=== PATIENT | female | born 1975 | race American Indian/Alaskan Native ===

== ENCOUNTER 2017-08-04 08:28 | Inpatient (IN) | payer MEDICARE, MEDICAID ==
[2017-08-04 08:34] VITALS: BMI 35.3
--- NOTE | 2017-08-04 09:01 | ED PDOC ---
Arrival/HPI - General Time Seen by Provider: 08/04/17 08:46 Historian: Patient, Other ([facility]) - History of Present Illness Narrative History of Present Illness (Text): 08/04/17 08:55 Pt p/w ~ 1 day onset of worsening depression, feeling suicidal, no plans; pt denied homicidal ideation; pt denied hallucinations - visual/tactile/auditory; no medical complaints currently; pt states no fever/chills/sweats, no cp/sob/ palpitations, no abd pain, no n/v, no numbness/tingling, no urinary/bowel changes; no fall/trauma/sick contact, no travel; pt's without other complaints; pt is here for further eval pt has been medically cleared by the previous emergency department prior to ED arrival. Time/Duration: < week Symptom Onset: Gradual Symptom Course: Worsening Severity Level: 8 Activities at Onset: Rest Past Medical History - Provider Review Nursing Documentation Reviewed: Yes - Travel History Have you recently traveled outside US w/in the past 3 mons?: No - Past History Past History: No Previous - Gastrointestinal Hx Gastroesophageal Reflux: Yes - Psychiatric Hx Anxiety: Yes Hx Depression: Yes Family/Social History - Physician Review Nursing Documentation Reviewed: Yes Family/Social History: No Known Family HX Smoking Status: Never Smoked Hx Alcohol Use: No Hx Substance Use: No Hx Substance Use Treatment: No Allergies/Home Meds Allergies/Adverse Reactions: Allergies benztropine [From Cogentin] Allergy (Verified 08/04/17 13:58) ANGIOEDEMA shrimp Allergy (Verified 08/04/17 13:58) RASH Tetracyclines Allergy (Verified 08/04/17 13:58) ANGIOEDEMA Home Medications: Home Meds Medication Instructions Recorded Confirmed Aspirin [Ecotrin] 81 mg PO DAILY 08/04/17 08/04/17 Omeprazole 20 mg PO DAILY 08/04/17 08/04/17 Paliperidone Palmitate [Invega 156 mg IM Q30D 08/04/17 08/04/17 Sustenna] Risperidone [Risperdal] 2 mg PO BID 08/04/17 08/04/17 Review of Systems - Review of Systems Constitutional: Normal Eyes: Normal ENT: Normal Respiratory: Normal Cardiovascular: Normal Gastrointestinal: Normal Genitourinary Female: Normal Musculoskeletal: Normal Skin: Normal Neurological: Normal Endocrine: Normal Hemo/Lymphatic: Normal Psychiatric: Depression, Suicidal Ideation Physical Exam Vital Signs Reviewed: Yes Vital Signs Temp Pulse Resp BP Pulse Ox 08/04/17 08:29 98.6 F 66 18 124/78 98 Temperature: Afebrile Blood Pressure: Normal Pulse: Regular Respiratory Rate: Normal Appearance: Positive for: Well-Appearing, Comfortable, Other (flat affect; alert /awake, GCS = 15, oriented x 3; cooperative, NAD, comfortable appearing) Pain Distress: None Mental Status: Positive for: Alert and Oriented X 3 - Systems Exam Head: Present: Atraumatic, Normocephalic Pupils: Present: PERRL, Other (no photophobia, sclera anicteric, no nystagmus, no photophobia) Extroacular Muscles: Present: EOMI Conjunctiva: Present: Normal Ears: Present: Normal Mouth: Present: Moist Mucous Membranes Pharnyx: Present: Normal Nose (External): Present: Atraumatic Neck: Present: Normal Range of Motion Respiratory/Chest: Present: Clear to Auscultation, Good Air Exchange Cardiovascular: Present: Regular Rate and Rhythm, Normal S1, S2 Abdomen: Present: Normal Bowel Sounds, Other (well nourished female, no focal tenderness, no masses/rebound/guarding/rigidity, no faria's sign, no mcburney' s point tenderness) Back: Present: Normal Inspection Upper Extremity: Present: Normal Inspection, Normal ROM, NORMAL PULSES, Capillary Refill < 2s Lower Extremity: Present: Normal Inspection, NORMAL PULSES, Capillary Refill < 2 s Neurological: Present: GCS=15, CN II-XII Intact Skin: Present: Warm, Normal Color, Other (cap refill < 1sec, no ulcerations, no petechiae) Psychiatric: Present: Alert, Oriented x 3, Normal Concentration, Depressed Mood Medical Decision Making ED Course and Treatment: 08/04/17 09:05 [facility] for further psych admission/placement pt is accepted by Dr Vikki Mckinnon A/P: Suicidal ideation/depression; schizoaffective d/o - observe - psych placement - supportive care pt is made aware of her medical results pt agrees with admission/psych placement Reassessment Condition: Unchanged - Lab Interpretations I have reviewed the lab results: Yes (WNL) - Medication Orders Current Medication Orders: Acetaminophen (Tylenol 325mg Tab) 650 mg PO Q6H PRN PRN Reason: Pain, moderate (4-7) Al Hydrox/Mg Hydrox/Simethicone (Maalox Plus 30 Ml) 30 ml PO DAILY PRN PRN Reason: Indigestion / Heartburn Aspirin (Aspirin Chewable) 81 mg PO DAILY [facility] Last Admin: 08/05/17 11:56 Dose: 81 mg Ergocalciferol (Drisdol 50,000 Intl Units Cap) 1 cap PO Q7D KATIE Famotidine (Pepcid) 20 mg PO 1000,2200 KATIE Lorazepam (Ativan) 1 mg PO TID PRN; Protocol PRN Reason: anxiety/agitaiton Lorazepam (Ativan) 2 mg IM Q6H PRN; Protocol PRN Reason: severe agitation/anxiety Magnesium Hydroxide (Milk Of Magnesia) 30 ml PO DAILY PRN PRN Reason: Constipation Risperidone (Risperdal Tab) 2 mg PO DAILY KATIE PRN Reason: Protocol Zaleplon (Sonata) 5 mg PO HS PRN PRN Reason: Insomnia Ziprasidone (Geodon Cap) 20 mg PO Q8H PRN; Protocol PRN Reason: Agitation Ziprasidone (Geodon Inj) 20 mg IM Q8H PRN; Protocol PRN Reason: severe agitaiton Discontinued Medications Risperidone (Risperdal Tab) 0.5 mg PO BID KATIE PRN Reason: Protocol Last Admin: 08/05/17 09:04 Dose: 0.5 mg Behavioural Document 08/05/17 09:04 LEON (Rec: 08/05/17 09:04 [id number] Maintenance Maintenance Dose Yes Re-Assess: Reassess Psych Meds Document 08/05/17 10:04 LEON (Rec: 08/05/17 11:47 LEON [id number]) Reassess Psych Med Effective Disposition/Present on Arrival - Present on Arrival Any Indicators Present on Arrival: No History of DVT/PE: No History of Uncontrolled Diabetes: No Urinary Catheter: No History of Decub. Ulcer: No - Disposition Have Diagnosis and Disposition been Completed?: Yes Diagnosis: Depression, Suicidal ideation, Medical clearance for psychiatric admission, Schizoaffective disorder, bipolar type Disposition: HOSPITALIZED Disposition Time: 09:30 Patient Plan: Admission Patient Problems: Current Active Problems Problem Status Onset Schizoaffective disorder, bipolar type Acute Condition: STABLE
[2017-08-04] MEDS ORDERED: Magnesium Hydroxide Susp 30 ml UD PO PRN (13:22)
[2017-08-04] MEDS ORDERED: Alum-Mag Hydrox-Simethicone Susp (30 mL) PO PRN (13:23)
--- NOTE | 2017-08-04 15:30 | PCM.BM ---
<Rohan Hoff - Last Filed: 08/04/17 15:27> Treatment Plan Problems - Problems identified on initial assessmt Delusions Date Initiated: 08/04/17 Time Initiated: 11:00 Assessment reference: NA Status: Active Priority: 1 Thought Process Date Initiated: 08/04/17 Time Initiated: 11:00 Assessment reference: NA Status: Active Priority: 2 Ineffective Coping Date Initiated: 08/04/17 Time Initiated: 11:00 Assessment reference: NA Status: Active Priority: 3 Self Care Deficit Date Initiated: 08/04/17 Time Initiated: 11:00 Assessment reference: NA Status: Active Priority: 4 Medication Nonadherence Date Initiated: 08/04/17 Time Initiated: 11:00 Assessment reference: NA Status: Active Priority: 5 <Arlene Dexter - Last Filed: 08/04/17 18:49> - Diagnosis (1) Schizoaffective disorder, bipolar type Status: Acute Interventions: Psychoeducation/psychotherapy Psychopharmacology/adjustment of medications as needed/ monitoring possible side effects Evaluate pt on daily basis Compliance with medications and follow up appointments Long acting medication if pt is noncompliant with pill form Suicide and homicide risk assessment and prevention, coping strategies, safety plan Relapse prevention Reduction of symptoms Improve functional status Possible assertive community treatment Cognitive behavioral therapy Family involvement Possible social skill training as outpatient 08/04/17 18:47
[2017-08-04 16:18] VITALS: O2SAT 100
--- NOTE | 2017-08-04 20:25 | PCM.PSYCH ---
Initial Psychiatric Evaluation - Initial Psychiatric Evaluation Legal Status: Capacity Chief Complaint (in patient's own words): "I am here because my social service director was concerned about me because I was suicidal because of the mice in my apartment" Patient's Reaction to Hospitalization: Patient is feeling safer in the hospital, being here distracts her from thoughts of what the mice are doing in her apartment. She wants to feel better because her social service director told her the mice are a delusion and if she sees the mice she gets suicidal and there is no solution to her problem unless she gets better. History of Present Illness and Precipitating Events: Patient is a 42 year old Lao equatorial guinean female seen today in treatment team. She was admitted here as a transfer from [facility] where she had been evaluated in their emergency room, found to be suicidal and voluntary for admission. Patient lives in housing through [facility] for people who have a mental illness. Her symptoms have been worsening over the last 3 months. She indicates she has been hospitalized 3x in the last 3 months at [facility]. 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 She has had mental illness for the last 20 years, she has had episodes of hallucinations , dylan and depression in the past. She was once for 13 years and has a 17 year old son who is in custody of his father. The marriage ending and losing custody of her son were both caused by patient's mental illness. Most recently, she has been on Invega Sustenna 156mg IM monthly. She says her last dose was , so she is due for that. She is additionally on Risperdal 2mg BID orally , but was not taking this a decision she made on her own. Current Medications: Active Medications Generic Name Dose Route Start Last Admin Trade Name Freq PRN Reason Stop Dose Admin Acetaminophen 650 mg 08/04/17 13:21 Tylenol 325mg Tab PO Q6H PRN Pain, moderate (4-7) Al Hydrox/Mg Hydrox/Simethicone 30 ml 08/04/17 13:23 Maalox Plus 30 Ml PO DAILY PRN Indigestion / Heartburn Magnesium Hydroxide 30 ml 08/04/17 13:22 Milk Of Magnesia PO DAILY PRN Constipation Risperidone 0.5 mg 08/04/17 16:00 08/04/17 16:30 Risperdal Tab PO 0.5 mg BID KATIE Administration Protocol Past Psychiatric History - Past Psychiatric History History of Abuse: Denied History of ETOH/Drug Use: Denied History of Family Illness: Denied Pertinent Medical Hx (Current Medical&Sleep Prob, Allergies): Allergies Allergy/AdvReac Type Severity Reaction Status Date / Time benztropine [From Cogentin] Allergy ANGIOEDEMA Verified 08/04/17 13:58 shrimp Allergy RASH Verified 08/04/17 13:58 Tetracyclines Allergy ANGIOEDEMA Verified 08/04/17 13:58 Aspirin [Ecotrin] 81 mg PO DAILY 08/04/17 Omeprazole 20 mg PO DAILY 08/04/17 Paliperidone Palmitate [Invega Sustenna] 156 mg IM Q30D 08/04/17 Risperidone [Risperdal] 2 mg PO BID 08/04/17 Medically, patient reports acid reflux and tricuspid regurgitation. Review of Systems - EENT Eyes: As Per HPI Ears: As Per HPI Nose/Mouth/Throat: As Per HPI - Breasts Breasts: As Per HPI - Cardiovascular Cardiovascular: As Per HPI - Respiratory Respiratory: As Per HPI - Gastrointestinal Gastrointestinal: As Per HPI - Genitourinary Genitourinary: As Per HPI - Reproductive: Female Reproductive:Female: As Per HPI - Menstruation Menstruation: As Per HPI - Musculoskeletal Musculoskeletal: As Par HPI - Integumentary Integumentary: As Per HPI - Neurological Neurological: As Per HPI - Psychiatric Psychiatric: As Per HPI - Endocrine Endocrine: As Per HPI - Hematologic/Lymphatic Hematologic: As Per HPI Mental Status Examination - Affect Affect: Blunted - Motor Activity Motor Activity: Calm Additional comments: AIMs exam negative - Reliability in Providing Information Reliability in Providing Information: Good - Speech Speech: Organized - Mood Mood: Neutral - Formal Thought Process Formal Thought Process: Hallucinations, Delusions - Hallucinations/Delusions Hallucinations: Visual Delusions: Other - Obsessions/Compulsions Obsessions: None Compulsions: None - Cognitive Functions Orientation: Person, Place, Situation, Time Sensorium: Alert Attention/Concentration: Attentive Abstract Thinking: Carmen Estimate of Intelligence: Average Judgement: Intact, as evidence by: Insight regarding need for hospitalization Memory: Recent intact, as evidence by: Ability to recall events of the day - Risk Risk: Suicidal - Strength & Assets Inventory Strength & Assets Inventory: Employment history, Skills, Cooperative DSM 5 DX - DSM 5 DSM 5 Diagnosis: Schizoaffective Disorder Bipolar Type - Recommended/Plan of Treatment Treatment Recommendations and Plan of Treatment: Treatment plan: Milieu/structure/supportive therapy Medical consult appreciated, see medical team note for more detailed info SW consultation for discharge plan and social issues Med management Family involvement Follow up on labs Will monitor closely evaluation for d/c planning Pt was educated about risk/benefits and alternatives of medications, coping strategies (safety plan, suicide prevention), relapse prevention, importance of follow up with psychiatrist and therapist, stay away from drugs/alcohol/smoking Discharge Plan and Discharge Criteria: Patient will no longer be suicidal, patient will have improvement in symptoms, will be stabilized on medication, will have follow up plan for therapy and medication. - Smoking Cessation Smoking Cessation Initiated: No Reason for not providing: Not a smoker
[2017-08-05 08:28] LABS: HDL CHOLESTEROL 44 mg/dL (29-60)
[2017-08-05 08:39] LABS: LDL CHOLESTEROL 125 mg/dL (0-129)
[2017-08-05 08:47] LABS: FREE T4 0.98 ng/dL (0.78-2.19)
--- NOTE | 2017-08-05 15:15 | PCM.PYCHPN ---
Psychiatric Progress Note - Psychiatric Progress Note Patient seen today, length of contact: 30min Patient Chief Complaint: "everything started from the mice..." Problems Identified/Issues Discussed: Suicide/ homicide prevention, past psychiatric h/o, current psychiatric symptoms , medical problems, risk/benefits and alternatives of medications, medications compliance, coping strategies, substance abuse h/o, relapse prevention, importance of follow up with psychiatrist and therapist, discharge plan. Medical Problems: pt is relatively healthy Diagnostic Results: Lab Results 08/05/17 08:00: Triglycerides 48, Cholesterol 174, LDL Cholesterol Direct 125, HDL Cholesterol 44 08/05/17 08:00: Free T4 0.98, TSH 3rd Generation 0.95 Vital Signs Temp Pulse Pulse Resp BP Pulse Ox 08/05/17 07:23 97.8 F 75 20 105/66 08/04/17 15:00 113 H 109/73 08/04/17 12:00 96 H 08/04/17 11:00 97.6 F 96 H 16 114/73 100 08/04/17 08:29 98.6 F 66 18 124/78 98 DSM 5 Symptoms Update: shortly patient is 42 year old -E[place] female from [facility], with long and debilitating history of multiple mental illness most likely schizoaffective disorder, multiple psych admissions, patient was transferred from [facility], for evaluation of delusions, disorganized thoughts and behavior. meds reviewed, labs reviewed, discussed with staff. pt was seen at the treatment team meeting, acceptable personal hygiene, but careless about her appearance, very concrete thought process, borderline intellectual functioning, pt is giving only yes or no answer, was not able for abstract thinking. pt presented to be delusional, disorganized, my therapist said "I am delusional ", was not able to explain what does it mean. pt said he was on Depakote, ativan, lithium, haldol "nothing worked", pt said he was doing "very well on abilify, I was very stable", when was asked why she discontinued, pt said "I thought I was cured". pt was educated about Abilify Mantena, pt does not want to try it. pt wants to continued on Invega Sustenna which is due for August 09 and resumed on abilify, will d/c riseprdal then. pt has impression that people could read her mind, thoughts insertion. pt tolerates meds well, no side effects observed or reported, AIMS 0, no EPS. Impression: Schizophrenia vs Schizoaffective. Medication Change: Yes (risperdal po d/c, will resume abilify 5mg bid) Medical Record Reviewed: Yes Consults ordered or reviewed: medical consult was called Mental Status Examination - Cognitive Function Orientation: Person, Place, Situation, Time Memory: Intact Attention: Poor Concentration: Poor Association: Loose Fund of Knowledge: Poor - Mood Mood: Neutral - Affect Affect: Blunted - Formal Thought Process Formal Thought Process: Hallucinations, Delusions - Suicidal Ideation Suicidal Ideation: No - Homicidal Ideation Homicidal Ideation: No Goal/Treatment Plan - Goal/Treatment Plan Need for Continued Stay: Remain at risks for inpatient hospitalization, Severe depression anxiety, Discharge may exacerbated symptoms, Severe functional impairment Progress Toward Problem(s) and Goals/Treatment Plan: Milieu/structure/supportive therapy Medical consult appreciated, see medical team note for more detailed info consultation for discharge plan and social issues Med management Aspirin [Ecotrin] 81 mg PO DAILY Omeprazole is nonformulary, pepcid will be given Paliperidone Palmitate [Invega Sustenna] 156 mg IM Q30D last dose was 07/03/2017 , pt is due for the medication "I need to get it on August 09". Risperidone will be d/c abilify will be resumed 5mg po amhs for psychosis PRN meds Family involvement Follow up on labs Will monitor closely evaluation for d/c planning Pt was educated about risk/benefits and alternatives of medications, coping strategies (safety plan, suicide prevention), relapse prevention, importance of follow up with psychiatrist and therapist, stay away from drugs/alcohol/smoking Estimated Date of D/C: 08/11/17 (will monitor closely)
--- NOTE | 2017-08-06 09:21 | CON ---
DATE: 08/05/2017 HISTORY OF PRESENT ILLNESS: This 42-year-old female was examined in the [facility] and her case was reviewed in detail with herself and her nurse, Shayna Santos, registered nurse. The patient was admitted to [facility] [place], [facility]. She was initially seen at the [facility], Emergency Room,where she was found to be exhibiting bizarre behavior. According to the patient, she was seen by her social worker masters earlier on the day of admission and complained of delusional ideology which caused her social worker masters to recommend her to the local Emergency Room, they evaluated her medically and sent her to the [facility] [place] [facility] for further evaluation of her delusional status. 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 When I questioned the patient on her medical issues, she states she has a 2-year history of knowledge of tricuspid regurgitation that was initially diagnosed after an abnormal EKG and the patient was scheduled for a 2-D echocardiogram for which she was told she had mild tricuspid regurgitation. She follows with Dr. Irving at [facility] in the cardiology division. She last saw him in October 2016 where he performed a stress test that was unremarkable and the patient is scheduled to see him this August 2017. The patient states that she was hospitalized at [facility] in April 2017 for an episode of vertigo, at which time she had a repeat 2-D echocardiogram that once again showed mild tricuspid regurgitation. She will be discussing this further with Dr. Irving, her mold yard crane operator within the next 2 weeks. The patient states she also has a history of chronic gastroesophageal reflux disease. She is obese and denied any other significant medical issues. REVIEW OF SYSTEMS: CONSTITUTIONAL: On constitutional review, she denied fever or chills. EYES: Reviewed no change in visual acuity. EARS: Reviewed no hearing loss. THROAT: Reviewed no swallowing difficulty. NECK: Reviewed no stiffness. CARDIAC: She denied any chest pain, shortness of breath and states she had a normal stress test in February 2017. PULMONARY: Denied hemoptysis or COPD. GASTROINTESTINAL: Chronic gastroesophageal reflux disease. GENITOURINARY: No dysuria. SKIN: No rash. VASCULAR: No claudication. PSYCHOLOGICAL: As per HPI. NEUROLOGICAL: No knowledge of stroke. VASCULAR: No claudication. ENDOCRINE: No knowledge of diabetes mellitus. SOCIAL HISTORY: She is a nondrinker, nonsmoker, non-IV drug misuser. FAMILY HISTORY: Her mother after a car accident and her father is in his 60s with Parkinson's disease. ALLERGIES: THE PATIENT STATES SHE HAS ALLERGIES TO COGENTIN, SHRIMP AND TETRACYCLINE. OUTPATIENT MEDICATIONS: She states her outpatient medications included Ecotrin 81 mg p.o. daily, Prilosec 20 mg p.o. daily, Invega, Sustenna monthly injection and Risperdal 2 mg p.o. b.i.d. PAST SURGICAL HISTORY: She denied any surgical history other than a . PHYSICAL EXAMINATION: GENERAL: The patient is alert and conversant and oriented to person, place and time. VITAL SIGNS: Temperature is 97.8, respirations are 20, pulse is 75, and blood pressure is 105/66. Pulse oximetry is 100% on room air. HEENT: Head normocephalic and atraumatic. Eyes: No icterus. Ears: Clear. Throat: Noninjected. NECK: Supple. HEART: S1 and S2. No pathological rubs, murmurs or gallops. LUNGS: Clear to auscultation. ABDOMEN: Obese and nontender. No palpable organomegaly. No rebound, no guarding. No tenderness. EXTREMITIES: No clubbing, no cyanosis, and no edema. SKIN: Without rash. NEUROLOGIC: Intact. PSYCHOLOGICAL: Alert and oriented x3. VASCULAR: Legs warm to touch. DIAGNOSTIC DATA: EKG showed a normal sinus rhythm with a pulse of 63. LABORATORY DATA: White count of 8700, hemoglobin of 13.2, hematocrit of 39, and platelets of 295,000. Sodium of 143, potassium of 4.2, chloride of 104, bicarbonate of 27, BUN of 8, creatinine of 0.8, and random blood sugar of 81. Bilirubin of 1.0, alkaline phosphatase of 61, AST of 15, and ALT of 31. Drug screen is unremarkable. Cholesterol is 174, LDL is 125, HDL is 44, and triglycerides are 48. Free T4 is normal 0.98. TSH is normal 0.95. RPR is nonreactive. IMPRESSION: This 42-year-old female with schizoaffective disorder, history of mild tricuspid regurgitation and peptic ulcer disease with gastroesophageal reflux disease, obesity, now admitted with delusional psychosis, anxiety neurosis, and insomnia. PLAN: As reviewed with the patient will be to continue her current psychotropic medication as outlined by psychiatry including Abilify 5 mg p.o. a.m. p.m., Ecotrin 81 mg p.o. daily, Ativan 1 mg p.o. t.i.d. p.r.n. anxiety, vitamin D 50,000 International Units p.o. weekly for her history of vitamin D deficiency, Geodon 20 mg p.o. q. 8 hours. p.r.n. anxiety, Pepcid 20 mg p.o. b.i.d., Tylenol 650 mg p.o. q. 6 hours. p.r.n. pain or temperature greater than 101 and Sonata 5 mg p.o. at bedtime p.r.n. insomnia. She continues on a regular diet. She will follow up with Dr. Irving, her mold yard crane operator this August regarding her chronic issues of mild tricuspid regurgitation, I have instructed the patient to inform him of her repeat echocardiogram which was reportedly stable during her hospital stay in [facility] in 04/2017. She agrees that she will follow up these results with him and declines any further workup of this stable condition while here at the [facility] [place] at this time. All of this was discussed in detail with the patient and her nurse Shayna Santos. Her labs were reviewed from [facility] Emergency Room prior to this admission at the [facility] [place] on 08/04/2017. Greater than seventy five minutes was spent in the care management, review of records, labs, medication and reports for this patient today. All questions were answered. Cat Martinez MD MTDD
[2017-08-06] MEDS: Ergocalciferol 50,000 Intl Units Cap PO SCH (13:29)
--- NOTE | 2017-08-06 18:29 | PCM.PYCHPN ---
Psychiatric Progress Note - Psychiatric Progress Note Patient seen today, length of contact: 30min Patient Chief Complaint: "everything started two years ago, mice in my apartment, I could smell it, it was horrible, but nobody could smell it, I was bleaching everything, and it was okay after that, then in April another alexsander , this time it was behind a hitter, I could not sleep, was sleeping at the living room, my back hurts, I spoke to my two case management manager, I told them that they need to move me to another apartment but they said that I am delusional and I need to go to the hospital, I also spoke to my super, he could find nothing...., but I know everything I said is true..." Problems Identified/Issues Discussed: Suicide/ homicide prevention, past psychiatric h/o, current psychiatric symptoms , medical problems, risk/benefits and alternatives of medications, medications compliance, coping strategies, substance abuse h/o, relapse prevention, importance of follow up with psychiatrist and therapist, discharge plan. Medical Problems: pt is relatively healthy Diagnostic Results: Lab Results 08/05/17 08:00: Triglycerides 48, Cholesterol 174, LDL Cholesterol Direct 125, HDL Cholesterol 44 08/05/17 08:00: Free T4 0.98, TSH 3rd Generation 0.95 Vital Signs Temp Pulse Pulse Resp BP Pulse Ox 08/05/17 07:23 97.8 F 75 20 105/66 08/04/17 15:00 113 H 109/73 08/04/17 12:00 96 H 08/04/17 11:00 97.6 F 96 H 16 114/73 100 08/04/17 08:29 98.6 F 66 18 124/78 98 Lab Results 08/05/17 08:00: RPR Nonreactive 08/05/17 08:00: Triglycerides 48, Cholesterol 174, LDL Cholesterol Direct 125, HDL Cholesterol 44 08/05/17 08:00: Free T4 0.98, TSH 3rd Generation 0.95 Temp Pulse Resp BP Pulse Ox 98.1 F 82 20 107/74 100 08/06/17 07:10 08/06/17 16:00 08/06/17 07:10 08/06/17 16:00 08/04/17 11:00 DSM 5 Symptoms Update: shortly patient is 42 year old -[place] female from [facility], with long and debilitating history of multiple mental illness most likely schizoaffective disorder, multiple psych admissions, patient was transferred from [facility], for evaluation of delusions, disorganized thoughts and behavior. meds reviewed, labs reviewed, discussed with staff. pt was seen at the treatment team meeting, acceptable personal hygiene, but careless about her appearance,pt was more talkative, circumstantial thought process, but affect was brighter to compare to the yesterday assessment. pt still delusional, convinced that mice in her apartment because she could smell it, pt said that she is the only one who could smell it, pt had that feeling ONLY when she is in her apt and not in the hospital, two of the pt's case management manager went there as well as super were not able to smell anything. " they told me that I am delusional and I need to go to the hospital". pt has multiple psych admission, including [facility] for 7months in 2014. pt said he was on Depakote, ativan, lithium, haldol "nothing worked". pt wants to continued on Invega Sustenna which is due for August 09, abilify was resumed 08/05/17, today will increase it to 10mg po bid. pt has impression that people could read her mind, thoughts insertion. pt tolerates meds well, no side effects observed or reported, AIMS 0, no EPS. Impression: Schizophrenia vs Schizoaffective. Medication Change: Yes (abilify 10mg po bid) Medical Record Reviewed: Yes Consults ordered or reviewed: medical consult was called Mental Status Examination - Cognitive Function Orientation: Person, Place, Situation, Time Memory: Intact Attention: Poor Concentration: Poor Association: Loose Fund of Knowledge: Poor - Mood Mood: Neutral - Affect Affect: Blunted - Formal Thought Process Formal Thought Process: Hallucinations, Delusions, Circumstantial - Suicidal Ideation Suicidal Ideation: No - Homicidal Ideation Homicidal Ideation: No Goal/Treatment Plan - Goal/Treatment Plan Need for Continued Stay: Remain at risks for inpatient hospitalization, Severe depression anxiety, Discharge may exacerbated symptoms, Severe functional impairment Progress Toward Problem(s) and Goals/Treatment Plan: Milieu/structure/supportive therapy Medical consult appreciated, see medical team note for more detailed info SW consultation for discharge plan and social issues Med management Aspirin [Ecotrin] 81 mg PO DAILY Omeprazole is nonformulary, pepcid will be given Paliperidone Palmitate [Invega Sustenna] 156 mg IM Q30D last dose was 07/03/2017 , pt is due for the medication "I need to get it on August 09". Risperidone will be d/c abilify increased 10mg po bid for psychosis, pt wants to take po medication, did not want to take abilify maintena PRN meds Family involvement Follow up on labs Will monitor closely SW evaluation for d/c planning Pt was educated about risk/benefits and alternatives of medications, coping strategies (safety plan, suicide prevention), relapse prevention, importance of follow up with psychiatrist and therapist, stay away from drugs/alcohol/smoking Estimated Date of D/C: 08/11/17 (will monitor closely)
--- NOTE | 2017-08-07 14:13 | PCM.PYCHPN ---
Psychiatric Progress Note - Psychiatric Progress Note Patient seen today, length of contact: 30min Patient Chief Complaint: "everything started two years ago, mice in my apartment, I could smell it, it was horrible, but nobody could smell it, I was bleaching everything, and it was okay after that, then in April another alexsander , this time it was behind a hitter, I could not sleep, was sleeping at the living room, my back hurts, I spoke to my two case maker, I told them that they need to move me to another apartment but they said that I am delusional and I need to go to the hospital, I also spoke to my super, he could find nothing...., but I know everything I said is true..." Problems Identified/Issues Discussed: Suicide/ homicide prevention, past psychiatric h/o, current psychiatric symptoms , medical problems, risk/benefits and alternatives of medications, medications compliance, coping strategies, substance abuse h/o, relapse prevention, importance of follow up with psychiatrist and therapist, discharge plan. Medical Problems: pt is relatively healthy Diagnostic Results: Lab Results 08/05/17 08:00: Triglycerides 48, Cholesterol 174, LDL Cholesterol Direct 125, HDL Cholesterol 44 08/05/17 08:00: Free T4 0.98, TSH 3rd Generation 0.95 Vital Signs Temp Pulse Pulse Resp BP Pulse Ox 08/05/17 07:23 97.8 F 75 20 105/66 08/04/17 15:00 113 H 109/73 08/04/17 12:00 96 H 08/04/17 11:00 97.6 F 96 H 16 114/73 100 08/04/17 08:29 98.6 F 66 18 124/78 98 Lab Results 08/05/17 08:00: RPR Nonreactive 08/05/17 08:00: Triglycerides 48, Cholesterol 174, LDL Cholesterol Direct 125, HDL Cholesterol 44 08/05/17 08:00: Free T4 0.98, TSH 3rd Generation 0.95 Temp Pulse Resp BP Pulse Ox 98.1 F 82 20 107/74 100 08/06/17 07:10 08/06/17 16:00 08/06/17 07:10 08/06/17 16:00 08/04/17 11:00 Temp Pulse Resp BP Pulse Ox 98.1 F 67 18 136/73 100 08/07/17 06:56 08/07/17 06:56 08/07/17 06:56 08/07/17 06:56 08/04/17 11:00 DSM 5 Symptoms Update: shortly patient is 42 year old -[place] female from [facility], with long and debilitating history of multiple mental illness most likely schizoaffective disorder, multiple psych admissions, patient was transferred from [facility], for evaluation of delusions, disorganized thoughts and behavior. meds reviewed, labs reviewed, discussed with staff. pt was seen next to the nursing station, acceptable personal hygiene, but careless about her appearance,pt was more talkative, circumstantial thought process, but affect was brighter to compare to the yesterday assessment. pt still delusional, convinced that mice in her apartment because she could smell it, pt said that she is the only one who could smell it, pt had that feeling ONLY when she is in her apt and not in the hospital, two of the pt's case maker went there as well as super were not able to smell anything. " they told me that I am delusional and I need to go to the hospital". pt has multiple psych admission, including [facility] for 7months in 2015. pt said he was on Depakote, ativan, lithium, haldol "nothing worked". pt wants to continued on Invega Sustenna which is due for August 09, abilify was resumed 08/05/17, was increased to 10mg po bid, pt c/o mild dizziness, pt was advised to let staff if dizziness is persistent. pt has impression that people could read her mind, thoughts insertion. pt tolerates meds well, no side effects observed or reported, AIMS 0, no EPS. Impression: Schizophrenia vs Schizoaffective. Medication Change: Yes (abilify 10mg po bid) Medical Record Reviewed: Yes Consults ordered or reviewed: medical consult was called Mental Status Examination - Cognitive Function Orientation: Person, Place, Situation, Time Memory: Intact Attention: Poor Concentration: Poor Association: Loose Fund of Knowledge: Poor - Mood Mood: Neutral - Affect Affect: Blunted - Formal Thought Process Formal Thought Process: Hallucinations, Delusions, Circumstantial - Suicidal Ideation Suicidal Ideation: No - Homicidal Ideation Homicidal Ideation: No Goal/Treatment Plan - Goal/Treatment Plan Need for Continued Stay: Remain at risks for inpatient hospitalization, Severe depression anxiety, Discharge may exacerbated symptoms, Severe functional impairment Progress Toward Problem(s) and Goals/Treatment Plan: Milieu/structure/supportive therapy Medical consult appreciated, see medical team note for more detailed info SW consultation for discharge plan and social issues Med management Aspirin [Ecotrin] 81 mg PO DAILY Omeprazole is nonformulary, pepcid will be given Paliperidone Palmitate [Invega Sustenna] 156 mg IM Q30D last dose was 07/03/2017 , pt is due for the medication "I need to get it on August 09". Risperidone was d/c abilify increased 10mg po bid for psychosis, pt wants to take po medication, did not want to take abilify maintena PRN meds Family involvement Follow up on labs Will monitor closely SW evaluation for d/c planning Pt was educated about risk/benefits and alternatives of medications, coping strategies (safety plan, suicide prevention), relapse prevention, importance of follow up with psychiatrist and therapist, stay away from drugs/alcohol/smoking Estimated Date of D/C: 08/11/17 (will monitor closely)
--- NOTE | 2017-08-08 00:18 | PN ---
DATE: 08/07/2017 SUBJECTIVE: This 42-year-old female was examined at her bedside. Her case was reviewed in detail with herself and her nurse, Shayna Santos, registered nurse. The patient is out of bed to chair. She is tolerating diet and medication well. She denies any chest pain, shortness of breath, fever, chills or dyspepsia. She states that she is taking her psychotropic medication as outlined, but does not feel completely improved. She is tolerating soft bland diet with Pepcid 20 mg p.o. b.i.d. and denies any dyspepsia. The patient was ordered to have a vitamin D level for completeness sake, which is therapeutic at 38.1 and normal is 30-100. This is while the patient is taking vitamin D 50,000 units weekly. PHYSICAL EXAMINATION: VITAL SIGNS: Her temperature is 98.1, respirations 18, pulse 67 and blood pressure 136/73. HEENT: Head is normocephalic, atraumatic. Eyes: No icterus. Ears: Clear. Throat: Noninjected. NECK: Supple. HEART: Regular S1, S2. LUNGS: Clear. ABDOMEN: Soft. EXTREMITIES: No edema. SKIN: Without rash. NEUROLOGICAL: Intact. PSYCHOLOGICAL: Alert. VASCULAR: Legs warm to touch. LABORATORY DATA: Her free T4 is normal 0.98. TSH is normal 0.95. Cholesterol 174. Vitamin D level 38.1. RPR nonreactive. IMPRESSION: This is a 42-year-old female with bipolar psychosis, history of schizoaffective disorder and comorbidities of obesity, low levels of vitamin D and peptic ulcer disease with gastroesophageal reflux disease and stable mild tricuspid regurgitation. PLAN: As discussed with the patient and nursing will include, continue soft bland diet, Pepcid 20 mg p.o. b.i.d., Drisdol 50,000 international units weekly and psychotropic medication as per psychiatry including Abilify 10 mg p.o. b.i.d., Ecotrin 81 mg p.o. daily, Ativan 1 mg p.o. t.i.d. p.r.n. anxiety, Geodon 20 mg p.o. q. 8 hours p.r.n. hallucinations, Pepcid 20 mg b.i.d. and Sonata 5 mg p.o. h.s. p.r.n. insomnia. The patient will follow up with Dr. Irving medical doctor at [facility] for her cardiology followup in mid August 2017. The patient will give him copies of recently completed 2-D echocardiogram from [facility] and pursue further management of her stable coronary artery and valvular disease with him. Of note, her stress test completed with Dr. Irving in February 2017 was reportedly unremarkable. Cat Martinez MD [facility]
--- NOTE | 2017-08-08 09:06 | PN ---
DATE: 08/06/2017 SUBJECTIVE: This 42-year-old female was examined and her case was reviewed in detail with her nurse, Kandis Santos. The patient remains alert and cooperative. She denies chest pain, shortness of breath, fever or chills. She was admitted with delusional psychosis and has comorbidities of obesity, peptic ulcer disease with GERD and a history of stable atherosclerotic heart disease. The patient is tolerating diet and medication well and denies any episodes of GERD or chest pain. PHYSICAL EXAMINATION: VITAL SIGNS: Temperature is 98.1, respirations are 20, pulse is 66, blood pressure is 107/61, and pulse ox is 100% room air. HEENT: Head normocephalic, atraumatic. Eyes: No icterus. Ears: Clear. Throat: Noninjected. NECK: Supple. HEART: Regular, S1 and S2. LUNGS: Clear. ABDOMEN: Obese. EXTREMITIES: No edema. SKIN: Without rash. NEUROLOGIC: Intact. PSYCHOLOGIC: Alert and oriented. VASCULAR: Legs are warm to touch. I reviewed with nurse Kandis Santos that the patient did indeed have an unremarkable chest x-ray when evaluated at the [facility] as well as a negative urine test. IMPRESSION: A 42-year-old obese female with history of mild tricuspid regurgitation, stable atherosclerotic heart disease, and peptic ulcer disease with gastroesophageal reflux disease, with history of schizoaffective disorder and now with delusional psychosis. PLAN: As discussed with the patient and nursing is to continue soft bland diet. She continues on medication including Sonata, Pepcid, Geodon, Drisdol, Ativan, aspirin, and Abilify. The patient will be seeing her laborer ammunition assembly, Dr. Irving at [facility] all within the next 2 weeks regarding cardiac issues that are stable at present and no further cardiac workup will be entertained at this time. All of the above was discussed in detail with the patient, nursing. All questions were answered. Cat Martinez MD PO
--- NOTE | 2017-08-08 18:07 | PCM.PYCHPN ---
Psychiatric Progress Note - Psychiatric Progress Note Patient seen today, length of contact: 30min Patient Chief Complaint: "I could not take the dose of that medication this morning it is too strong two times a day. I was dizzy and my chest was hot" Problems Identified/Issues Discussed: Patient continues with her belief that there are mice in her apartment, and that they are dying and contaminating the air and food in her apartment. Evidently she was sleeping upright due to the smell, was throwing away her pots and pans due to the concern the mice were contaminating them, and not eating well because she was afraid the air (the smell of the decomposing mice) would poison her food so was only eating sealed snacks. She has had 3 hospitalizations in the last 3 months due to this ongoing belief system having been returned to the same living situation each time. She is willing to consider that this is part of her mental illness if it reoccurs in another apartment, however she fully believes that these events with the mice are real in her current apartment. She is due for her Invega Sustenna injection tomorrow. Diagnostic Results: Temp Pulse Resp BP Pulse Ox 98.2 F 77 20 120/84 100 08/08/17 07:39 08/08/17 16:00 08/08/17 07:39 08/08/17 16:00 08/04/17 11:00 Most Recent Lab Values Triglycerides 48 mg/dL (35-160) 08/05/17 08:00 Cholesterol 174 mg/dL (130-200) 08/05/17 08:00 LDL Cholesterol Direct 125 mg/dL (0-129) 08/05/17 08:00 HDL Cholesterol 44 mg/dL (29-60) 08/05/17 08:00 25-OH Vitamin D Total 38.1 NG/ML (30.0-100.0) 08/07/17 05:00 Free T4 0.98 ng/dL (0.78-2.19) 08/05/17 08:00 TSH 3rd Generation 0.95 mIU/mL (0.46-4.68) 08/05/17 08:00 RPR Nonreactive (NONREACTIVE) 08/05/17 08:00 Medication Change: Yes (Abilify decreased to 10mg QHS) Medical Record Reviewed: Yes Mental Status Examination - Cognitive Function Orientation: Person, Place, Situation, Time Memory: Intact Attention: Poor Concentration: Poor Association: Loose Fund of Knowledge: Poor - Mood Mood: Neutral - Affect Affect: Blunted - Formal Thought Process Formal Thought Process: Hallucinations, Delusions, Circumstantial - Suicidal Ideation Suicidal Ideation: No - Homicidal Ideation Homicidal Ideation: No Goal/Treatment Plan - Goal/Treatment Plan Need for Continued Stay: Remain at risks for inpatient hospitalization, Severe depression anxiety, Discharge may exacerbated symptoms, Severe functional impairment Progress Toward Problem(s) and Goals/Treatment Plan: Treatment plan: Milieu/structure/supportive therapy Medical consult appreciated, see medical team note for more detailed info SW consultation for discharge plan and social issues Med management Family involvement Follow up on labs Will monitor closely SW evaluation for d/c planning Pt was educated about risk/benefits and alternatives of medications, coping strategies (safety plan, suicide prevention), relapse prevention, importance of follow up with psychiatrist and therapist, stay away from drugs/alcohol/smoking Estimated Date of D/C: 08/11/17 (will monitor closely)
--- NOTE | 2017-08-09 00:18 | PN ---
DATE: 08/08/2017 SUBJECTIVE: This 42-year-old female was examined at her bedside. Her case was reviewed in detail with herself and nursing, Dennis Trinh, registered nurse, and case was reviewed with clinical social work aide, Clarissa Simpson. The patient told me, this morning, she refused her Abilify because it was making her feel dizzy. Other than that, she is tolerating diet and medication well. She is cooperating with nursing staff; and denies any chest pain, fever, chills, shortness of breath, hematemesis, or melena. PHYSICAL EXAMINATION: VITAL SIGNS: Temperature 98.2, respirations 20, pulse 69, and blood pressure 108/67. Pulse ox is 100% on room air. HEENT: Head: Normocephalic, atraumatic. Eyes: No icterus. Ears: Clear. Throat: Noninjected. NECK: Supple. HEART: Regular. S1, S2. LUNGS: Clear. ABDOMEN: Obese. EXTREMITIES: No edema. SKIN: Without rash. NEUROLOGICAL: Intact. PSYCHOLOGICAL: Alert. VASCULAR: Legs, warm to touch. LABORATORY DATA: Free T4 of 0.98. TSH 0.95, normal. Cholesterol 174; 25-hydroxy vitamin D level 38.1. RPR nonreactive. IMPRESSION: This is a 42-year-old female with obesity, stable mild tricuspid regurgitation, history of stable atherosclerotic heart disease, peptic ulcer disease with gastroesophageal reflux disease, low vitamin D levels, and history of bipolar psychosis and schizoaffective disorder. PLAN: The plan is to maintain this patient on the psychiatric dominique where she continues on Abilify 10 mg p.o. at bedtime, aspirin 81 mg p.o. daily, Ativan 1 mg p.o. t.i.d. p.r.n. anxiety, Geodon 20 mg p.o. q.8 hours p.r.n. anxiety, Pepcid 20 mg p.o. b.i.d., vitamin D 50,000 international units weekly, and Tylenol 650 p.o. q.6 hours p.r.n. pain. She continues on a soft bland diet. She is being monitored by the psychiatric team and ultimate plan will be for discharge to home when medically stable. The patient will need outpatient followup with her hospital intern, Dr. Irving, Cardiology at [facility] where she has an appointment on 08/21. All of the above was discussed in detail with the patient and nursing as well as clinical social work aide. All questions were answered. Cat Martinez MD PO
[2017-08-09] MEDS ORDERED: PALIPERIDONE 156 MG IM ONE (10:00)
[2017-08-09] MEDS ORDERED: Home Med 1 UNIT IM ONE (10:00)
--- NOTE | 2017-08-09 17:24 | PN ---
DATE: 08/09/2017 SUBJECTIVE: This 42-year-old female was examined at her bedside. She remains alert, oriented, and denying any chest pain or shortness of breath. She is cooperating with the nursing staff. She is tolerating diet and medication. She does not complain of any dizziness since her Abilify was decreased to 10 mg p.o. h.s. When questioning the patient if she has any complaints of gastric reflux, chest pain, or shortness of breath, she denies such complaints. PHYSICAL EXAMINATION: VITAL SIGNS: Her temperature is 98, respirations 20, pulse 77, blood pressure 131/84. Pulse ox 100% on room air. HEENT: Head normocephalic, atraumatic. Eyes: No icterus. Ears: Clear. Throat: Noninjected. NECK: Supple. HEART: Regular S1, S2. LUNGS: Clear. ABDOMEN: Soft. EXTREMITIES: No edema. SKIN: Without rash. NEUROLOGICAL: Intact. PSYCHOLOGICAL: Alert and pleasant. VASCULAR: Legs warm to touch. LABORATORY DATA: Vitamin D level 38.1. Free T4 0.98, normal; TSH 0.95 normal; total cholesterol 174, normal. IMPRESSION: This is a 42-year-old female with stable atherosclerotic heart disease, history of mild tricuspid regurgitation and comorbidities of gastroesophageal reflux disease, low vitamin D levels; now therapeutic on vitamin D 50,000 units supplementation weekly with comorbidities of bipolar psychosis and schizoaffective disorder. PLAN: At present as discussed with the patient and Dr. Sam Braun from Psychiatry is to continue her on a soft bland diet. She continues on medication including Sonata, Pepcid, Geodon, Drisdol, Ativan, Ecotrin and Abilify. As discussed with the patient, once she is cleared by the psychiatric team, she will be medically approved for discharge to home and is aware she needs to continue outpatient follow up with her verification manager, Dr. Irving at [facility] where she has a scheduled appointment on 08/21/2017. All questions were answered. Cat Martinez MD PO
--- NOTE | 2017-08-09 19:22 | PCM.PYCHPN ---
Psychiatric Progress Note - Psychiatric Progress Note Patient seen today, length of contact: 30min Patient Chief Complaint: "I am feeling better today. My thoughts are clearer." Problems Identified/Issues Discussed: Patient continues with her belief system that there are mice in her apartment. She is medication compliant, affect improved and is socializing appropriately. She is anxious for discharge, hoping she will be allowed to move to another apartment that is not infested with mice. Medical Problems: Patient reports a "heart problem" but not picked up on HPI 08/04/2017. Diagnostic Results: Temp Pulse Resp BP Pulse Ox 98.2 F 77 20 120/84 100 08/08/17 07:39 08/08/17 16:00 08/08/17 07:39 08/08/17 16:00 08/04/17 11:00 Most Recent Lab Values Triglycerides 48 mg/dL (35-160) 08/05/17 08:00 Cholesterol 174 mg/dL (130-200) 08/05/17 08:00 LDL Cholesterol Direct 125 mg/dL (0-129) 08/05/17 08:00 HDL Cholesterol 44 mg/dL (29-60) 08/05/17 08:00 25-OH Vitamin D Total 38.1 NG/ML (30.0-100.0) 08/07/17 05:00 Free T4 0.98 ng/dL (0.78-2.19) 08/05/17 08:00 TSH 3rd Generation 0.95 mIU/mL (0.46-4.68) 08/05/17 08:00 RPR Nonreactive (NONREACTIVE) 08/05/17 08:00 Medication Change: Yes (Invega Sustenna 156 mg IM given today.) Medical Record Reviewed: Yes Mental Status Examination - Cognitive Function Orientation: Person, Place, Situation, Time Memory: Intact Attention: Poor Concentration: Poor Association: Loose Fund of Knowledge: Poor - Mood Mood: Neutral - Affect Affect: Blunted - Formal Thought Process Formal Thought Process: Hallucinations, Delusions, Circumstantial - Suicidal Ideation Suicidal Ideation: No - Homicidal Ideation Homicidal Ideation: No Goal/Treatment Plan - Goal/Treatment Plan Need for Continued Stay: Remain at risks for inpatient hospitalization, Severe depression anxiety, Discharge may exacerbated symptoms, Severe functional impairment Progress Toward Problem(s) and Goals/Treatment Plan: Treatment plan: Milieu/structure/supportive therapy Medical consult appreciated, see medical team note for more detailed info SW consultation for discharge plan and social issues Med management Family involvement Follow up on labs Will monitor closely SW evaluation for d/c planning Pt was educated about risk/benefits and alternatives of medications, coping strategies (safety plan, suicide prevention), relapse prevention, importance of follow up with psychiatrist and therapist, stay away from drugs/alcohol/smoking Estimated Date of D/C: 08/11/17 (will monitor closely)
--- NOTE | 2017-08-10 16:13 | PN ---
DATE: 08/10/2017 HISTORY OF PRESENT ILLNESS: This 42-year-old female was examined at her bedside. Her case was reviewed with herself, nursing and Dr. Braun from Psychiatry. The patient remains alert and cooperative. She denies any fever, chills, chest pain or shortness of breath. She is tolerating diet and medication well and denies any dizziness or shortness of breath. PHYSICAL EXAMINATION: VITAL SIGNS: Temperature 97.7, respirations 20, pulse 70, blood pressure 112/68. HEENT: Head: Normocephalic, atraumatic. Eyes: No icterus. Ears: Clear. Throat: Noninjected. NECK: Supple. HEART: Regular, S1, S2. LUNGS: Clear. ABDOMEN: Soft. EXTREMITIES: No edema. SKIN: Without rash. NEUROLOGIC: Intact. PSYCHOLOGIC: Alert. VASCULAR: Legs warm to touch. LABORATORY DATA: Her vitamin D level 38.1, therapeutic. T4 level 0.98, therapeutic. TSH 0.95 normal. Cholesterol level 174 normal. IMPRESSION: A 42-year-old female with history of bipolar psychosis, schizoaffective disorder and comorbidities of obesity, low levels of vitamin D, peptic ulcer disease with gastroesophageal reflux disease and history of mild tricuspid regurgitation. PLAN: The plan at present is to continue soft bland diet. Medications including Pepcid, Sonata, Geodon, Drisdol, Ativan, Ecotrin and Abilify. The patient will follow up with her catering manager, Dr. Irving at [facility] upon discharge. She is awaiting disposition and discharge planning by Psychiatry. All of the above was reviewed with the patient, nursing and Psychiatry. All questions were answered. Cat Martinez MD PO
[2017-08-10] MEDS ORDERED: [UNRECOGNIZED DRUG - OTHER] IM STA (16:25)
--- NOTE | 2017-08-10 17:35 | PCM.PYCHPN ---
Psychiatric Progress Note - Psychiatric Progress Note Patient seen today, length of contact: 30min Patient Chief Complaint: "I am doing well here because I am not at home." Problems Identified/Issues Discussed: Patient continues to be cooperative and pleasant on the unit. She spends most of her time in common areas and socializes with her peers. She wants to go home but is concerned that it will be the "same situation all over again". Medical Problems: Patient reports a "heart problem" but not present on HPI 08/04/2017. Diagnostic Results: Temp Pulse Resp BP Pulse Ox 98.2 F 77 20 120/84 100 08/08/17 07:39 08/08/17 16:00 08/08/17 07:39 08/08/17 16:00 08/04/17 11:00 Most Recent Lab Values Triglycerides 48 mg/dL (35-160) 08/05/17 08:00 Cholesterol 174 mg/dL (130-200) 08/05/17 08:00 LDL Cholesterol Direct 125 mg/dL (0-129) 08/05/17 08:00 HDL Cholesterol 44 mg/dL (29-60) 08/05/17 08:00 25-OH Vitamin D Total 38.1 NG/ML (30.0-100.0) 08/07/17 05:00 Free T4 0.98 ng/dL (0.78-2.19) 08/05/17 08:00 TSH 3rd Generation 0.95 mIU/mL (0.46-4.68) 08/05/17 08:00 RPR Nonreactive (NONREACTIVE) 08/05/17 08:00 Temp Pulse Resp BP Pulse Ox 97.7 F 70 20 112/68 100 08/10/17 07:32 08/10/17 07:32 08/10/17 07:32 08/10/17 07:32 08/04/17 11:00 Medication Change: Yes (Invega Sustenna 156 mg IM given today.) Medical Record Reviewed: Yes Mental Status Examination - Cognitive Function Orientation: Person, Place, Situation, Time Memory: Intact Attention: Poor Concentration: Poor Association: Loose Fund of Knowledge: Poor - Mood Mood: Neutral - Affect Affect: Blunted - Formal Thought Process Formal Thought Process: Hallucinations, Delusions, Circumstantial - Suicidal Ideation Suicidal Ideation: No - Homicidal Ideation Homicidal Ideation: No Goal/Treatment Plan - Goal/Treatment Plan Need for Continued Stay: Remain at risks for inpatient hospitalization, Severe depression anxiety, Discharge may exacerbated symptoms, Severe functional impairment Progress Toward Problem(s) and Goals/Treatment Plan: Treatment plan: Milieu/structure/supportive therapy Medical consult appreciated, see medical team note for more detailed info SW consultation for discharge plan and social issues Med management Family involvement Follow up on labs Will monitor closely SW evaluation for d/c planning Pt was educated about risk/benefits and alternatives of medications, coping strategies (safety plan, suicide prevention), relapse prevention, importance of follow up with psychiatrist and therapist, stay away from drugs/alcohol/smoking Estimated Date of D/C: 08/11/17 (will monitor closely)
--- NOTE | 2017-08-11 14:33 | PN ---
DATE: 08/11/2017 SUBJECTIVE: This 42-year-old female was examined at the bedside and her case was reviewed with herself and social media content manager, Clarissa Simpson. The patient continues to cooperate with nursing staff. She is tolerating diet and medication well. She is being readied for psychiatric discharge to her home within the next few days and remains calm and cooperative. PHYSICAL EXAMINATION: VITAL SIGNS: Temperature 98.6, respirations 20, pulse 70, and blood pressure 114/73. HEENT: Head is normocephalic, atraumatic. Eyes: No icterus. Ears: Clear. Throat: Noninjected. NECK: Supple. HEART: Regular S1, S2. LUNG: Clear. ABDOMEN: Soft. EXTREMITIES: No edema. SKIN: With no edema. Without rash. NEUROLOGIC: Intact. PSYCHIATRIC: Alert. VASCULAR: Legs are warm to touch. LABORATORY DATA: TSH is normal at 0.95. Vitamin D level 38.1, therapeutic. Total cholesterol 174. IMPRESSION: A 42-year-old female with history of bipolar with psychosis, schizoaffective disorder, obesity, peptic ulcer disease with gastroesophageal reflux disease, and history of mild stable tricuspid regurgitation. Plan is to continue soft bland diet. She continues on medications including Sonata, Pepcid, Geodon, Drisdol, Ativan, Ecotrin, and Abilify. The patient will be closely monitored while in the psychiatric unit and she will return to the care of her coat hanger shaper machine operator, Dr. Irving at [facility] upon discharge. She has a pending appointment with him on 08/21/2017. Cat Martinez MD MTDD
--- NOTE | 2017-08-11 18:59 | PCM.PYCHPN ---
Psychiatric Progress Note - Psychiatric Progress Note Patient seen today, length of contact: 30min Patient Chief Complaint: "I want someone to call my geriatric social work professor and tell her I cannot live in that place." Problems Identified/Issues Discussed: Patient has been more agitated and preoccupied with her concerns regarding the mice in her apartment. She is angry and frustrated and convinced that this situation is "completely real". She feels her geriatric social work professor does not believe her. She is easily calmed down. Is calm and cooperative otherwise on the unit, follows all rules and is medication compliant. She does not meet the criteria for involuntary commitment at this time. Nursing notes and social work notes reviewed. Medical Problems: Patient reports a "heart problem" but not present on HPI 08/04/2017. Diagnostic Results: Temp Pulse Resp BP Pulse Ox 98.2 F 77 20 120/84 100 08/08/17 07:39 08/08/17 16:00 08/08/17 07:39 08/08/17 16:00 08/04/17 11:00 Most Recent Lab Values Triglycerides 48 mg/dL (35-160) 08/05/17 08:00 Cholesterol 174 mg/dL (130-200) 08/05/17 08:00 LDL Cholesterol Direct 125 mg/dL (0-129) 08/05/17 08:00 HDL Cholesterol 44 mg/dL (29-60) 08/05/17 08:00 25-OH Vitamin D Total 38.1 NG/ML (30.0-100.0) 08/07/17 05:00 Free T4 0.98 ng/dL (0.78-2.19) 08/05/17 08:00 TSH 3rd Generation 0.95 mIU/mL (0.46-4.68) 08/05/17 08:00 RPR Nonreactive (NONREACTIVE) 08/05/17 08:00 Temp Pulse Resp BP Pulse Ox 97.7 F 70 20 112/68 100 08/10/17 07:32 08/10/17 07:32 08/10/17 07:32 08/10/17 07:32 08/04/17 11:00 Temp Pulse Resp BP Pulse Ox 98.6 F 101 H 20 118/82 100 08/11/17 07:19 08/11/17 16:00 08/11/17 07:19 08/11/17 16:00 08/04/17 11:00 Medication Change: No Medical Record Reviewed: Yes Mental Status Examination - Cognitive Function Orientation: Person, Place, Situation, Time Memory: Intact Attention: WNL Concentration: WNL Association: Loose Fund of Knowledge: Poor - Mood Mood: Neutral - Affect Affect: Blunted - Speech Speech: Soft - Formal Thought Process Formal Thought Process: Hallucinations, Delusions, Circumstantial - Suicidal Ideation Suicidal Ideation: No - Homicidal Ideation Homicidal Ideation: No Goal/Treatment Plan - Goal/Treatment Plan Need for Continued Stay: Remain at risks for inpatient hospitalization, Severe depression anxiety, Discharge may exacerbated symptoms, Severe functional impairment Progress Toward Problem(s) and Goals/Treatment Plan: Treatment plan: Milieu/structure/supportive therapy Medical consult appreciated, see medical team note for more detailed info SW consultation for discharge plan and social issues Med management Family involvement Follow up on labs Will monitor closely SW evaluation for d/c planning Pt was educated about risk/benefits and alternatives of medications, coping strategies (safety plan, suicide prevention), relapse prevention, importance of follow up with psychiatrist and therapist, stay away from drugs/alcohol/smoking Estimated Date of D/C: 08/11/17 (will monitor closely) If changed, why: Patient needs further observation, symptoms have not stabilized. - Smoking Cessation Smoking Cessation Initiated: No Reason for not providing: Not a smoker
--- NOTE | 2017-08-12 08:42 | PCM.PYCHPN ---
Psychiatric Progress Note - Psychiatric Progress Note Patient seen today, length of contact: 25 min Patient Chief Complaint: "frustrated and overwhelmed" Problems Identified/Issues Discussed: I reviewed assessment and recent notes. I met with patient at bedside and she is oriented x3. Grooming is acceptable and she is superficially cooperative with my questioning. I agree with staff notes in that patient is very preoccupied with mice that have reportedly infested her home the last few months. She is frustrated and overwhelmed because no one believes her. She fears her food was getting contaminated and has cleaned her home with bleach. Last Monday she decided to because of the mice. Indicates that she "no longer feels like this anymore". Her affect is anxious, labile and mildly brittle. Patient denies any new discomfort, pain or side effects. Staff notes indicate that patient has been anxious but in fair control. She is still preoccupied with the presence of rodents in her apartment and the fact that no one wants to help her. She is taking her medications and has been visible on the unit socializing with peers and watching television. There were no major behavioral issues overnight. DSM 5 Symptoms Update: Schizophrenia vs. Schizoaffective Disorder Medication Change: No Medical Record Reviewed: Yes Mental Status Examination - Cognitive Function Orientation: Person, Place, Situation, Time Memory: Intact Attention: WNL Concentration: WNL Association: Loose Fund of Knowledge: Poor - Mood Mood: Neutral ("frustrated and overwhelmed") - Affect Affect: Blunted, Other (anxious, labile and mildly brittle.) - Speech Speech: Soft - Formal Thought Process Formal Thought Process: Hallucinations, Delusions, Circumstantial - Suicidal Ideation Suicidal Ideation: No - Homicidal Ideation Homicidal Ideation: No Goal/Treatment Plan - Goal/Treatment Plan Need for Continued Stay: Remain at risks for inpatient hospitalization, Severe depression anxiety, Discharge may exacerbated symptoms, Severe functional impairment Progress Toward Problem(s) and Goals/Treatment Plan: * c/w current tx and plan * Abilify 10 mg HS * Sonata 5 mg HS prn: insomnia * Ativan 1 mg po TID prn: anxiety * No new weekend labs * Vitals reviewed and noted below: Selected Entries 08/11/17 08/11/17 07:19 16:00 Temperature 98.6 F Pulse Rate 70 101 H Respiratory 20 Rate Blood Pressure 114/73 118/82 Estimated Date of D/C: 08/11/17 (will monitor closely)
--- NOTE | 2017-08-13 08:48 | PCM.PYCHPN ---
Psychiatric Progress Note - Psychiatric Progress Note Patient seen today, length of contact: 25 min Patient Chief Complaint: "better" Problems Identified/Issues Discussed: I reviewed recent notes and met with patient at bedside. She is oriented x3. Grooming is acceptable and she is superficially cooperative with my questioning. Patient still remains preoccupied about mice that have reportedly infested her home. Informed me that she decided to last Monday because of the mice. She still reports that she "no longer feels like this anymore" and she is hopeful about the future. She also discussed with a staff member the possibility of getting a cat. Her affect is less upset, obsessive and anxious than yesterday. Staff have noticed that she is calming down regarding this situation and less easily agitated. Staff notes also indicate that patient has been more visible, outgoing and engaged. She has been taking her medications. Denies any side effects, discomfort or pain. There were no major behavioral issues over the weekend. Diagnostic Results: Schizophrenia vs. Schizoaffective Disorder Medication Change: No Medical Record Reviewed: Yes Mental Status Examination - Cognitive Function Orientation: Person, Place, Situation, Time Memory: Intact Attention: WNL Concentration: WNL Association: Loose Fund of Knowledge: Poor - Mood Mood: Neutral ("better") - Affect Affect: Blunted, Other (anxious but calmer than yesterday) - Speech Speech: Appropriate - Formal Thought Process Formal Thought Process: Hallucinations (denies), Delusions, Circumstantial - Suicidal Ideation Suicidal Ideation: No - Homicidal Ideation Homicidal Ideation: No Goal/Treatment Plan - Goal/Treatment Plan Need for Continued Stay: Remain at risks for inpatient hospitalization, Severe depression anxiety, Discharge may exacerbated symptoms, Severe functional impairment Progress Toward Problem(s) and Goals/Treatment Plan: * c/w current tx and plan * Abilify 10 mg HS * Sonata 5 mg HS prn: insomnia * Ativan 1 mg po TID prn: anxiety * No new weekend labs * Vitals reviewed and noted below: 08/12/17 08/12/17 06:42 15:00 Temperature 97.6 F 97.6 F Pulse Rate 82 96 H Respiratory 20 17 Rate Blood Pressure 116/67 127/88 Estimated Date of D/C: 08/11/17 (will monitor closely)
[2017-08-13] MEDS: Ergocalciferol 50,000 Intl Units Cap PO SCH (12:57)
--- NOTE | 2017-08-14 00:10 | PN ---
DATE: 08/13/2017 SUBJECTIVE: This 42-year-old female was examined in the psychiatric dominique. She appears alert and oriented and distraught that no one believes that she has mice in her apartment. The patient has a high school social science teacher in her community where she resides. She has been instructed to follow up with her upon discharge regarding her living arrangements, and the patient at present denies any suicidal or homicidal ideation. She denies fever, chills, chest pain or shortness of breath. PHYSICAL EXAMINATION: VITAL SIGNS: Temperature 97.6, respirations 18, pulse 77 and blood pressure 119/81. HEAD: Normocephalic, atraumatic. EYES: No icterus. EARS: Clear. THROAT: Noninjected. NECK: Supple. HEART: Regular S1, S2. LUNGS: Clear. ABDOMEN: Soft. EXTREMITIES: No edema. SKIN: Without rash. NEUROLOGICAL: Intact. PSYCHOLOGICAL: Alert. VASCULAR: Legs warm to touch. IMPRESSION: This is a 42-year-old female with obesity, stable mild tricuspid regurgitation, history of peptic ulcer disease with gastroesophageal reflux disease, and history of vitamin D deficiency with bipolar psychosis and schizoaffective disorder. PLAN: The plan as discussed with patient is to continue soft bland diet. She continues on medication including Sonata, Pepcid, Geodon, Drisdol, Ativan, aspirin, and Abilify. Ultimate plan will be for her to follow up with her incident response lead, Dr. Irving upon discharge regarding her medical issues, and she will be cleared for discharge when deemed appropriate by Psychiatry. All of the above was discussed in detail with the patient and nursing, Dennis Trinh, registered nurse. All questions were answered. Cat Martinez MD PO
--- NOTE | 2017-08-14 11:25 | PCM.BM ---
<Jorge Judge - Last Filed: 08/14/17 11:25> Treatment Plan Problems - Problems identified on initial assessmt Delusions Date Initiated: 08/04/17 Time Initiated: 11:00 Assessment reference: NA Status: Active Priority: 1 Thought Process Date Initiated: 08/04/17 Time Initiated: 11:00 Date resolved: 08/14/17 Assessment reference: NA Status: Active Priority: 2 Ineffective Coping Date Initiated: 08/04/17 Time Initiated: 11:00 Date resolved: 08/14/17 Assessment reference: NA Status: Active Priority: 3 Self Care Deficit Date Initiated: 08/04/17 Time Initiated: 11:00 Date resolved: 08/14/17 Assessment reference: NA Status: Active Priority: 4 Medication Nonadherence Date Initiated: 08/04/17 Time Initiated: 11:00 Date resolved: 08/14/17 Assessment reference: NA Status: Active Priority: 5 - Milieu Protocol Milieu Narrative: * c/w current tx and plan * Abilify 10 mg HS * Sonata 5 mg HS prn: insomnia * Ativan 1 mg po TID prn: anxiety * No new weekend labs * Vitals reviewed and noted below: 08/12/17 08/12/17 06:42 15:00 Temperature 97.6 F 97.6 F Pulse Rate 82 96 H Respiratory 20 17 Rate Blood Pressure 116/67 127/88 Discharge/Continuing Care - Treatment Team Participation Patient/Family/SO Statement: * c/w current tx and plan * Abilify 10 mg HS * Sonata 5 mg HS prn: insomnia * Ativan 1 mg po TID prn: anxiety * No new weekend labs * Vitals reviewed and noted below: 08/12/17 08/12/17 06:42 15:00 Temperature 97.6 F 97.6 F Pulse Rate 82 96 H Respiratory 20 17 Rate Blood Pressure 116/67 127/88 Treatment Plan Review - Problem Delusions Time Initiated: 11:00 Thought Process Time Initiated: 11:00 Ineffective Coping Time Initiated: 11:00 Self Care Deficit Time Initiated: 11:00 Medication Nonadherence Time Initiated: 11:00 <Arlene Dexter - Last Filed: 08/16/17 12:55> - Diagnosis (1) Schizoaffective disorder, bipolar type Status: Acute Interventions: Psychoeducation Psychopharmacology/adjustment of medications as needed/ monitoring possible side effectsMonitor blood level of mood stabilizers Evaluate pt on daily basis Compliance with medications and follow up appointments Suicide and homicide risk assessment and prevention, coping strategies, safety plan Relapse prevention Reduction of symptoms Improve functional status Family involvement As outpatient: cognitive behavioral therapy 08/16/17 12:55 <Nickie Glaser - Last Filed: 08/18/17 11:16> Family Contact Family involvement: Family/SO is involved Family contact: Patient agrees to contact Family contacted how many times per week?: 2 - Goals for Treatment Patient goals for treatment: Patient reports he wants to go to rehab upon d/c
--- NOTE | 2017-08-14 17:33 | PCM.PYCHPN ---
Psychiatric Progress Note - Psychiatric Progress Note Patient seen today, length of contact: 25 min Patient Chief Complaint: "I am doing good because I am not at my apartment with the mice" Problems Identified/Issues Discussed: Patient was seen today in treatment team. Her affect is improved, she is able to laugh and smile appropriately. She is pleasant and cooperative on the unit, and feels she is ready for discharge. She is medication compliant. Her sister will come to get the keys to her apartment to check for the mice. SW will speak with patients outpatient SW tomorrow. Medical Problems: Patient reports a "heart problem" but not present on HPI 08/04/2017. Diagnostic Results: Temp Pulse Resp BP Pulse Ox 98.2 F 77 20 120/84 100 08/08/17 07:39 08/08/17 16:00 08/08/17 07:39 08/08/17 16:00 08/04/17 11:00 Most Recent Lab Values Triglycerides 48 mg/dL (35-160) 08/05/17 08:00 Cholesterol 174 mg/dL (130-200) 08/05/17 08:00 LDL Cholesterol Direct 125 mg/dL (0-129) 08/05/17 08:00 HDL Cholesterol 44 mg/dL (29-60) 08/05/17 08:00 25-OH Vitamin D Total 38.1 NG/ML (30.0-100.0) 08/07/17 05:00 Free T4 0.98 ng/dL (0.78-2.19) 08/05/17 08:00 TSH 3rd Generation 0.95 mIU/mL (0.46-4.68) 08/05/17 08:00 RPR Nonreactive (NONREACTIVE) 08/05/17 08:00 Temp Pulse Resp BP Pulse Ox 97.7 F 70 20 112/68 100 08/10/17 07:32 08/10/17 07:32 08/10/17 07:32 08/10/17 07:32 08/04/17 11:00 Temp Pulse Resp BP Pulse Ox 98.6 F 101 H 20 118/82 100 08/11/17 07:19 08/11/17 16:00 08/11/17 07:19 08/11/17 16:00 08/04/17 11:00 Temp Pulse Resp BP Pulse Ox 97.6 F 83 18 105/60 100 08/13/17 07:00 08/14/17 16:00 08/13/17 07:00 08/14/17 16:00 08/04/17 11:00 Medication Change: No Medical Record Reviewed: Yes Mental Status Examination - Cognitive Function Orientation: Person, Place, Situation, Time Memory: Intact Attention: WNL Concentration: WNL Association: Loose Fund of Knowledge: Poor - Mood Mood: Neutral ("better") - Affect Affect: Blunted, Other (anxious but calmer than yesterday) - Speech Speech: Appropriate - Formal Thought Process Formal Thought Process: Hallucinations (denies), Delusions, Circumstantial - Suicidal Ideation Suicidal Ideation: No - Homicidal Ideation Homicidal Ideation: No Goal/Treatment Plan - Goal/Treatment Plan Need for Continued Stay: Remain at risks for inpatient hospitalization, Severe depression anxiety, Discharge may exacerbated symptoms, Severe functional impairment Progress Toward Problem(s) and Goals/Treatment Plan: Treatment plan: Milieu/structure/supportive therapy Medical consult appreciated, see medical team note for more detailed info SW consultation for discharge plan and social issues Med management Family involvement Follow up on labs Will monitor closely evaluation for d/c planning Pt was educated about risk/benefits and alternatives of medications, coping strategies (safety plan, suicide prevention), relapse prevention, importance of follow up with psychiatrist and therapist, stay away from drugs/alcohol/smoking Estimated Date of D/C: 08/11/17 (will monitor closely) If changed, why: Patient not fully stable, will observe further - Smoking Cessation Smoking Cessation Initiated: No Reason for not providing: Patient not a smoker
--- NOTE | 2017-08-15 00:38 | PN ---
DATE: 08/14/2017 SUBJECTIVE: This 42-year-old female was seen in the psychiatric unit. She is awaiting clearance for discharge to home by Psychiatry. She denies any fever, chills, chest pain, shortness of breath, nausea or vomiting and is tolerating diet and medication well and cooperating with nursing staff. She will follow up with her healthcare social worker upon return home regarding continuation of her work programs and social service needs. She will follow up with her dynamics ax solution architect, Dr. Irving on 08/21/2017. PHYSICAL EXAMINATION: VITAL SIGNS: At present, temperature is 97.6, respirations 18, pulse 77 and blood pressure 119/81. HEAD: Normocephalic, atraumatic. EYES: No icterus. EARS: Clear. THROAT: Noninjected. NECK: Supple. HEART: S1, S2. LUNGS: Clear. ABDOMEN: Soft. EXTREMITIES: No edema. SKIN: Without rash. NEUROLOGICAL: Intact. PSYCHOLOGICAL: Alert. VASCULAR: Legs are warm to touch. IMPRESSION: A 42-year-old female admitted with bipolar psychosis, schizoaffective disorder and medical comorbidities of obesity, tricuspid regurgitation, peptic ulcer disease with gastroesophageal reflux disease and history of low vitamin D level. The patient will continue on Drisdol, Pepcid, and psychotropic medications as outlined including Ativan, Geodon, Sonata, and the patient will follow up with dynamics ax solution architect upon discharge to home. All of the above was discussed with the patient at her bedside and nursing. All questions were answered. Cat Martinez MD MTDD
[2017-08-15 06:52] VITALS: RESP 20
--- NOTE | 2017-08-15 08:08 | PN ---
DATE: 08/12/2017 SUBJECTIVE: This 42-year-old female who was examined in the Psychiatric Unit. She is eating lunch and remains cooperative with nursing staff. She denies fever, chills, chest pain, or shortness of breath. OBJECTIVE: VITAL SIGNS: Temperature of 97.6, respirations 20, pulse 82, and blood pressure 116/67. HEENT: Head: Normocephalic and atraumatic. Eyes: No icterus. Ears: Clear. Throat: Noninjected. NECK: Supple. HEART: Regular S1 and S2. LUNGS: Clear. ABDOMEN: Soft. EXTREMITIES: No edema. SKIN: Without rash. NEUROLOGICAL: Intact. PSYCHOLOGICAL: Alert. VASCULAR: Legs warm to touch. IMPRESSION: This 42-year-old obese female with history of peptic ulcer disease, gastroesophageal reflux disease, low vitamin D levels, and mild tricuspid regurgitation for which she follows with classer, Dr. Irving at [facility] with psychiatric diagnoses including bipolar psychosis and schizoaffective disorder. PLAN: As discussed with the patient and nursing, we will continue her soft bland diet and medications including Pepcid, Geodon, Drisdol, Ativan, Ecotrin, and Abilify. The patient is being followed by Psychiatry and Social Service and is medically approved for discharge when psychiatrically cleared. All questions by the patient were answered. Her prognosis remains stable at present. Cat Martinez MD MTDAlexia
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
[2017-08-16 07:22] VITALS: BP 121/71; PULSE 79; TEMP 97.9
--- NOTE | 2017-08-16 08:10 | PN ---
DATE: 08/15/2017 SUBJECTIVE: This 42-year-old female was examined in the psychiatric dominique. Her case was reviewed in detail with herself, nurse Emmy Daniels, as well as social contact worker, Clarissa Simpson. The patient remains hospitalized with exacerbation of bipolar psychosis and schizoaffective disorder. She is followed by Dr. Napoleon Braun from Psychiatry and continues on psychotropic medication including Abilify, Ativan, Geodon, and Sonata. She denies fever, chills, chest pain or shortness of breath. She is tolerating diet and medication well. She is cooperating with the nursing staff. OBJECTIVE: VITAL SIGNS: Temperature 97.7, respirations 20, pulse 67, and blood pressure 119/66. HEART: Regular S1 and S2. LUNGS: Clear. ABDOMEN: Soft. EXTREMITIES: No edema. The patient will continue hospitalization until cleared for discharge by Psychiatry. She will also continue on medical therapy with Drisdol 50,000 units 1 tablet weekly, Pepcid 20 mg b.i.d., and Ecotrin 81 mg daily. This case was reviewed in detail with herself, nursing, and social work. All questions were answered. Cat Martinez MD MTDD
--- NOTE | 2017-08-16 20:45 | PN ---
DATE: 08/16/2017 SUBJECTIVE: This 42-year-old female was examined in psychiatric unit. Her case was reviewed in detail with herself and nurse Emmy Daniels, registered nurse. The patient is being readied for discharge. She will follow up with her social director and psychiatrist upon discharge and has a cardiology appointment with Dr. Irving, medical clerk at [facility] in [place], [place], 08/21/2017. PHYSICAL EXAMINATION: VITAL SIGNS: Her temperature is 97.9, respirations 20, pulse 79 and blood pressure 121/71. HEENT: Head normocephalic, atraumatic. Eyes: No icterus. Ears: Clear. Throat: Noninjected. NECK: Supple. HEART: Regular S1, S2. LUNGS: Clear. ABDOMEN: Soft. EXTREMITIES: No edema. SKIN: Without rash. NEUROLOGICAL: Intact. PSYCHOLOGICAL: Alert. VASCULAR: Legs are warm to touch. IMPRESSION: A 42-year-old female with chronic bipolar psychosis, schizoaffective disorder with delusional ideation, now improved and comorbidities of obesity, peptic ulcer disease with gastroesophageal reflux disease, low vitamin D levels and history of tricuspid regurgitation under the followup of her medical clerk as an outpatient. PLAN: For the patient to be discharged to home today. She will continue on medication including Abilify 10 mg p.o. h.s., Pepcid 20 mg p.o. b.i.d., Drisdol 50,000 International Units weekly on Monday and Ecotrin 81 mg p.o. daily. She is advised to be consistent with her psychiatric, social director and medical followups as an outpatient and all of the above was reviewed in detail with the patient and nursing. All questions were answered. Cat Martinez MD PO
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
== END 2017-08-16 15:20 | disposition home or self-care (01) | DRG 885 ==
LOC: ED 08:28 → ERH 09:02 → PSYC 10:51
PROVIDERS: ADMIT Psychiatry & Neurology Addiction Medicine; ATTEND Psychiatry & Neurology Addiction Medicine
PROC: GZ3ZZZZ Medication Management (ICD-10-PCS; principal; 2017-08-04)
DX: F22 Delusional disorders (principal); F25.0 Schizoaffective disorder, bipolar type; I36.1 Nonrheumatic tricuspid (valve) insufficiency; F41.1 Generalized anxiety disorder; I25.10 Atherosclerotic heart disease of native coronary artery without angina pectoris; G47.00 Insomnia, unspecified; E55.9 Vitamin D deficiency, unspecified; K21.9 Gastro-esophageal reflux disease without esophagitis; K27.9 Peptic ulcer, site unspecified, unspecified as acute or chronic, without hemorrhage or perforation; E66.9 Obesity, unspecified; Z68.34 Body mass index [BMI] 34.0-34.9, adult